=== PATIENT | male | born 1955 | race Caucasian/White ===

== ENCOUNTER 2022-11-24 04:23 | Emergency (ER) | payer MEDICARE, OTHER ==
[2022-11-24] MEDS ORDERED: Dextrose 5%-0.9% NaCl 1,000 ML IV SCH (05:00)
[2022-11-24 05:04] LABS: HEMOGLOBIN A1C 5.9 %
[2022-11-24 05:09] LABS: ESTIMATED GFR 75 mL/min (>60)
[2022-11-24] MEDS ORDERED: Iopamidol 755 Mg/ML 100 ML Bottle IVPUSH ONE (05:35)
[2022-11-24] MEDS ORDERED: Sodium Chloride 0.9% 100 ML IV SCH (05:45)
[2022-11-24] MEDS ORDERED: Aspirin 81 MG Tab.Chew PO ONE (06:52)
[2022-11-24] MEDS ORDERED: Clopidogrel 75 MG Tab PO ONE (06:52)
== END 2022-11-24 07:20 | disposition home or self-care (01) ==
LOC: JD.ED 04:23
DX: G45.9 Transient cerebral ischemic attack, unspecified (principal); R53.1 Weakness; Z79.82 Long term (current) use of aspirin; Z79.02 Long term (current) use of antithrombotics/antiplatelets; Z87.891 Personal history of nicotine dependence; Z88.0 Allergy status to penicillin
CPT/HCPCS: 36415; 70450; 70496; 70498; 71045; 80053; 80061; 82947; 83036; 83735; 83880; 84484; 85025; 85610; 85730; 86140; 93005; 96360; 96361; 99285; A9270; J3490; J7042; Q9967; 93010; 99284

== ENCOUNTER 2023-04-13 08:47 | Emergency (ER) | payer MEDICARE, OTHER ==
[2023-04-13 09:21] LABS: BASOPHILS ABSOLUTE AUTO 0.06 K/mm3 (0.01-0.08); BASOPHILS PERCENT AUTO 0.3 % (0.1-1.2); EOSINOPHILS ABSOLUTE AUTO 0.05 K/mm3 (0.04-0.54); EOSINOPHILS PERCENT AUTO 0.3 (0.8-7.0); HEMOGLOBIN 13.7 gm/dl (13.7-17.5); IMMATURE GRAN ABSOLUTE AUTO 0.07 K/mm3 (0.00-0.10); IMMATURE GRAN PERCENT AUTO 0.4 % (<=1.0); LYMPHOCYTES ABSOLUTE AUTO 0.67 K/mm3 (1.32-3.57); LYMPHOCYTES PERCENT AUTO 3.7 % (21.8-53.1); MEAN CORPUSCULAR HEMOGLOBIN 33.5 pg (25.7-32.2); MEAN CORPUSCULAR HGB CONC 33.4 g/dl (32.2-35.5); MEAN PLATELET VOLUME 8.5 fl (9.4-12.3); MONOCYTES ABSOLUTE AUTO 0.95 K/mm3 (0.30-0.82); MONOCYTES PERCENT AUTO 5.3 % (5.3-12.2); NEUTROPHILS ABSOLUTE AUTO 16.19 K/mm3 (1.78-5.38); PLATELET COUNT,PLT 372 K/mm3 (163-337); RED BLOOD CELL COUNT 4.09 M/mm3 (4.63-6.08); WHITE BLOOD CELL COUNT,WBC 17.99 K/mm3 (4.23-9.07)
[2023-04-13 09:27] LABS: MEAN CORPUSCULAR VOLUME 100.2 fl (79.0-92.2)
[2023-04-13 09:37] LABS: INR 1.02; PROTHROMBIN TIME 10.9 SECONDS (9.7-12.0)
[2023-04-13 09:43] LABS: ALANINE AMINOTRANSFERASE,ALT 20 U/L (16-63); ALBUMIN 3.4 g/dl (3.4-5.0); ALKALINE PHOSPHATASE 98 U/L (46-116); ANION GAP 9.4 (5-15); ASPARTATE AMNIOTRANSFERASE,AST 14 U/L (15-37); BILIRUBIN TOTAL 0.6 mg/dL (0.2-1.0); BLOOD UREA NITROGEN,BUN 16 mg/dL (7-18); BUN/CREATININE RATIO 13.3 (14-18); CALCIUM 8.9 mg/dL (8.5-10.1); CARBON DIOXIDE,CO2 29 mEq/L (21-32); CHLORIDE,CL 101 mEq/L (98-107); CREATININE 1.2 mg/dL (0.7-1.3); EST CRCL DRUG DOSING (CG) 67.36 mL/min; ESTIMATED GFR 67 mL/min (>60); GLUCOSE RANDOM 129 mg/dL (70-99); POTASSIUM,K 4.4 mEq/L (3.5-5.1); PROTEIN TOTAL,TP 6.7 g/dl (6.4-8.2); SODIUM,NA 135 mEq/L (136-145)
[2023-04-13 09:54] LABS: TROPONIN I HIGH SENSITIVITY < 4 pg/mL (<=76)
[2023-04-13 10:30] LABS: LACTIC ACID 1.9 mmol/L (0.4-2.0)
[2023-04-13] MEDS ORDERED: Sodium Chloride 0.9% 1,000 ML IV ONE (11:07)
== END 2023-04-13 11:20 ==
LOC: JD.ED 08:47
DX: S06.0X9A Concussion with loss of consciousness of unspecified duration, initial encounter (principal); Z88.0 Allergy status to penicillin; Z79.82 Long term (current) use of aspirin; Z79.01 Long term (current) use of anticoagulants; Z79.899 Other long term (current) drug therapy; W19.XXXA Unspecified fall, initial encounter; Y92.69 Other specified industrial and construction area as the place of occurrence of the external cause; Y99.0 Civilian activity done for income or pay
CPT/HCPCS: 36415; 70450; 71045; 80053; 82947; 83605; 84484; 85025; 85610; 87040; 93005; 99285; J7030; 93010

== ENCOUNTER 2024-02-08 07:10 | Emergency (ER) | payer BC, MEDICARE ==
[2024-02-08 08:17] LABS: BASOPHILS ABSOLUTE AUTO 0.1 K/mm3 (0.0-0.2); BASOPHILS PERCENT AUTO 1.1 % (0.0-1.0); EOSINOPHILS ABSOLUTE AUTO 0.3 K/mm3 (0.0-0.4); EOSINOPHILS PERCENT AUTO 4.6 % (0.0-6.0); HEMATOCRIT 45.5 % (42.0-52.0); HEMOGLOBIN 15.3 gm/dl (14.0-18.0); IMMATURE GRAN ABSOLUTE AUTO 0.05 K/mm3 (0.00-0.05); IMMATURE GRAN PERCENT AUTO 0.7 % (0.0-0.4); LYMPHOCYTES PERCENT AUTO 27.1 % (24.0-44.0); MEAN CORPUSCULAR HEMOGLOBIN 31.5 pg (28.0-32.0); MEAN CORPUSCULAR HGB CONC 33.6 g/dl (32.0-36.0); MEAN CORPUSCULAR VOLUME 93.6 fl (83.0-99.0); MEAN PLATELET VOLUME 8.9 fl (9.4-12.4); MONOCYTES ABSOLUTE AUTO 0.7 K/mm3 (0.0-0.8); MONOCYTES PERCENT AUTO 9.5 % (0.0-8.0); NEUTROPHILS ABSOLUTE AUTO 4.2 K/mm3 (1.8-7.7); PLATELET COUNT,PLT 265 K/mm3 (150-400); RED BLOOD CELL COUNT 4.86 M/mm3 (4.52-5.90); WHITE BLOOD CELL COUNT,WBC 7.39 K/mm3 (3.9-11.3)
[2024-02-08 08:48] LABS: A/G RATIO 1.3 (1-2); ANION GAP 11.2 (5-15); BILIRUBIN TOTAL 0.5 mg/dL (0.2-1.0); BUN/CREATININE RATIO 12.7 (14-18); CALCIUM 9.4 mg/dL (8.5-10.1); CREATININE 1.1 mg/dL (0.7-1.3); EST CRCL DRUG DOSING (CG) 70.36 mL/min; POTASSIUM,K 4.2 mEq/L (3.5-5.1); PROTEIN TOTAL,TP 7.2 g/dl (6.4-8.2)
[2024-02-08 09:09] LABS: APPEARANCE,URINE CLEAR (Clear); BILIRUBIN,URINE NEGATIVE (Negative); COLOR,URINE YELLOW (Yellow); GLUCOSE,URINE NEGATIVE (Negative); KETONES,URINE NEGATIVE (Negative); LEUKOCYTE ESTERASE,URINE NEGATIVE (Negative); NITRITE,URINE NEGATIVE (Negative); OCCULT BLOOD,URINE TRACE-INTACT (Negative); PROTEIN,URINE NEGATIVE (Negative); UROBILINOGEN,URINE 0.2 (0.2-1.0)
[2024-02-08 09:50] LABS: BACTERIA,URINE FEW /hpf (FEW); MUCUS,URINE FEW /hpf (FEW); SQUAMOUS EPITHELIAL CELLS,UR 0-5 /hpf (0-5); WBC,URINE 0-5 /hpf (0-5)
== END 2024-02-08 12:45 | disposition home or self-care (01) ==
LOC: JD.ED 07:10
DX: R31.0 Gross hematuria (principal); E78.00 Pure hypercholesterolemia, unspecified; Z88.0 Allergy status to penicillin; Z79.82 Long term (current) use of aspirin; Z79.899 Other long term (current) drug therapy; Z87.891 Personal history of nicotine dependence
CPT/HCPCS: 36415; 74176; 74176-26; 80053; 81001; 83690; 85025; 99284

== ENCOUNTER 2024-12-29 09:30 | Day surgery (SDC) | payer BC, MEDICARE ==
[2024-12-29] MEDS: Tetracaine HCl/PF 0.5% 4 ML Bottle EYEBOTH SCH (09:20)
[2024-12-29] MEDS: Lidocaine 1% PF 2 ML SDV INJECT SCH (09:20)
[2024-12-29] MEDS: Phenylephrine 2.5% Ophth Soln 2 ML Bot EYERT SCH (09:20)
[2024-12-29] MEDS: Polymyxin B/Trimethoprim 10 ML Bottle EYERT SCH (09:21)
[2024-12-29] MEDS: Brimonidine 0.2% Ophth Soln 5 ML Bottle EYERT SCH (09:21)
[2024-12-29] MEDS: Pilocarpine 4% Ophth Soln 15 ML Bot EYERT SCH (09:22)
[~2024-12-29 09:30] MED LIST: Cefuroxime 10 MG/ML SYRINGE EYERT SCH
[2024-12-29] MEDS: Tropicamide 1% Ophth Soln 3 ML Bottle EYERT SCH (10:22)
== END 2024-12-29 11:47 ==
LOC: JD.SDS 09:30
PROVIDERS: ATTEND Ophthalmology
DX: H25.811 Combined forms of age-related cataract, right eye (principal); H16.103 Unspecified superficial keratitis, bilateral; H57.813 Brow ptosis, bilateral; H02.831 Dermatochalasis of right upper eyelid; H35.373 Puckering of macula, bilateral; H16.223 Keratoconjunctivitis sicca, not specified as Sjogren's, bilateral; I48.91 Unspecified atrial fibrillation; G30.0 Alzheimer's disease with early onset; F02.80 Dementia in other diseases classified elsewhere, unspecified severity, without behavioral disturbance, psychotic disturbance, mood disturbance, and anxiety; E78.00 Pure hypercholesterolemia, unspecified; Z79.01 Long term (current) use of anticoagulants; Z79.899 Other long term (current) drug therapy
CPT/HCPCS: 66984; A9270; J3490; V2632

== ENCOUNTER 2025-04-26 08:25 | Day surgery (SDC) | payer MEDICARE, OTHER ==
[~2025-04-26 08:25] MED LIST changes: -Cefuroxime 10 MG/ML SYRINGE EYERT SCH; +Sodium Chloride 0.9% 10 ML Syringe FLUSH PRN; +Sodium Chloride 0.9% 10 ML Syringe FLUSH SCH
[2025-04-26] MEDS ORDERED: Propofol 200 MG/20 ML SDV ONE (08:34)
[2025-04-26] MEDS: Lactated Ringers 1,000 ML IV SCH (08:49)
[2025-04-26] MEDS ORDERED: fentaNYL 100 MCG/2 ML SDV ONE (09:20)
== END 2025-04-26 11:47 | disposition home or self-care (01) ==
LOC: JD.SDS 08:25
PROVIDERS: ATTEND Surgery
DX: D12.3 Benign neoplasm of transverse colon (principal); D12.4 Benign neoplasm of descending colon; D12.5 Benign neoplasm of sigmoid colon; K21.9 Gastro-esophageal reflux disease without esophagitis; K22.710 Barrett's esophagus with low grade dysplasia; K29.50 Unspecified chronic gastritis without bleeding; K31.A11 Gastric intestinal metaplasia without dysplasia, involving the antrum; K44.9 Diaphragmatic hernia without obstruction or gangrene; K64.8 Other hemorrhoids; E78.2 Mixed hyperlipidemia; E66.9 Obesity, unspecified; Z80.0 Family history of malignant neoplasm of digestive organs; Z68.33 Body mass index [BMI] 33.0-33.9, adult; Z79.899 Other long term (current) drug therapy; Z87.891 Personal history of nicotine dependence
CPT/HCPCS: 43239; 45380; 88305; J2003; J2704; J3010; J7120; 00813

== ENCOUNTER 2025-07-11 07:59 | Day surgery (SDC) | payer MEDICARE, OTHER ==
[2025-07-11] MEDS: Lactated Ringers 1,000 ML IV SCH (08:30)
[2025-07-11] MEDS ORDERED: Propofol 200 MG/20 ML SDV ONE (08:52)
== END 2025-07-11 10:05 | disposition home or self-care (01) ==
LOC: JD.SDS 07:59
PROVIDERS: ATTEND Surgery
DX: K22.70 Barrett's esophagus without dysplasia (principal); K44.9 Diaphragmatic hernia without obstruction or gangrene; K21.00 Gastro-esophageal reflux disease with esophagitis, without bleeding; K25.9 Gastric ulcer, unspecified as acute or chronic, without hemorrhage or perforation; I82.412 Acute embolism and thrombosis of left femoral vein; I63.9 Cerebral infarction, unspecified; I48.91 Unspecified atrial fibrillation; E78.00 Pure hypercholesterolemia, unspecified; E66.9 Obesity, unspecified; Z88.0 Allergy status to penicillin; Z79.899 Other long term (current) drug therapy; Z87.891 Personal history of nicotine dependence
CPT/HCPCS: 43239; C9777; J2003; J2704; J7120; 00731